=== PATIENT | male | born 2000 | race Caucasian/White ===

== ENCOUNTER 2022-10-11 23:40 | Emergency (ER) | payer BC ==
[~2022-10-11] VITALS: Ht 160 cm; Wt 63.5 kg
--- NOTE | 2022-10-11 23:50 | NUR ---
RICHARD C/O ALLERGIC REACTION X 30 MIN. PATIENT ATE SALAD WITH UNCONSCIOUSLY HAVING WALNUT. PATIENT IS AAOX4, ABLE TO MAKE NEEDS KNOWN, SOB, -CP, + BILATERAL LUNG WHEEZING, REDNESS AND RASHES ALL OVER THE BODY. PLACED COMFORTABLY IN BED. ATTACHED TO MONITOR. VITALS CHECKED.
[2022-10-11] MEDS ORDERED: EPINEPHRINE (1:1000) 1 MG/ML AMPUL ONE (23:53)
[2022-10-11] MEDS ORDERED: FAMOTIDINE/PF INJ 20 MG/2 ML VIAL IV ONE (23:54)
[2022-10-11] MEDS ORDERED: methylPREDNISolone SOD SUCC 125 MG/2ML VIAL ONE (23:54)
[2022-10-11] MEDS ORDERED: ALBUTEROL FS 2.5 MG/3 ML VIAL.NEB ONE (23:55)
[2022-10-11] MEDS ORDERED: IPRATROPIUM NEB FS 0.5 MG/2.5 ML AMPUL.NEB ONE (23:55)
--- NOTE | 2022-10-11 23:55 | NUR ---
IV MACRINA G20 INSERTED ON RIGHT AC. BLOOD DRAWN AND SENT TO LAB
[2022-10-12] MEDS ORDERED: methylPREDNISolone SOD SUCC 125 MG/2ML VIAL IV ONE
[2022-10-12] MEDS ORDERED: ALBUTEROL FS 2.5 MG/3 ML VIAL.NEB NEB ONE
[2022-10-12] MEDS ORDERED: FAMOTIDINE/PF INJ 20 MG/2 ML VIAL IV ONE
[2022-10-12] MEDS ORDERED: IV NS 0.9% 1,000 ML BAG IV ONE
[2022-10-12] MEDS ORDERED: IPRATROPIUM NEB FS 0.5 MG/2.5 ML AMPUL.NEB NEB ONE
[2022-10-12] MEDS ORDERED: EPINEPHRINE (1:1000) MDV 30 MG/30ML VIAL SUBCUT ONE
--- NOTE | 2022-10-12 00:41 | NUR ---
PATIENT'S LUNGS ARE CLEAR, PATIENT IS MORE CALMER AND RELAX.
--- NOTE | 2022-10-12 03:13 | NUR ---
PATIENT IS AWAKE, CALM AND FEEL MUCH BETTER. NEEDS ATTENDED
[2022-10-12] MEDS ORDERED: PRED20TA PO (03:29)
[2022-10-12] MEDS ORDERED: EPIN0.3P3 IM (03:29)
--- NOTE | 2022-10-12 03:29 | NUR ---
SEEN BY MD AT BEDSIDE
--- NOTE | 2022-10-12 03:35 | NUR ---
IV MACRINA REMOVED
--- NOTE | 2022-10-12 03:36 | NUR ---
Patient discharged to home in stable condition. Written and verbal after care instructions given. Patient verbalizes understanding of instruction.
[2022-10-12 04:38] VITALS: BP 120/66
== END 2022-10-12 04:38 | disposition home or self-care (01) ==
LOC: ER 23:42
DX: T78.05XA Anaphylactic reaction due to tree nuts and seeds, initial encounter (principal); R06.2 Wheezing; Z91.018 Allergy to other foods; Z79.899 Other long term (current) drug therapy; Z60.2 Problems related to living alone
CPT/HCPCS: 99284; 94640; 96374; 96361; 96375; 96372; J0171 ×2; J3490; J2930; J7030

== ENCOUNTER 2023-03-05 15:05 | Emergency (ER) | payer BC ==
[~2023-03-05] VITALS: Ht 157.5 cm; Wt 61.2 kg
[~2023-03-05 15:05] MED LIST: EPIN0.3P3 IM; PRED20TA PO
[2023-03-05] MEDS ORDERED: IBUP-1955 PO (17:06)
[2023-03-05 18:10] VITALS: BP 112/64; TEMP 98.3; O2SAT 100
== END 2023-03-05 18:11 | disposition home or self-care (01) ==
LOC: ER 15:20
DX: S06.0X0A Concussion without loss of consciousness, initial encounter (principal); R51.9 Headache, unspecified; M79.632 Pain in left forearm; Z79.899 Other long term (current) drug therapy; Z60.2 Problems related to living alone; Z88.1 Allergy status to other antibiotic agents; V89.2XXA Person injured in unspecified motor-vehicle accident, traffic, initial encounter; Y93.89 Activity, other specified; Y92.89 Other specified places as the place of occurrence of the external cause; Y99.8 Other external cause status
CPT/HCPCS: 70450-TC; 71045-TC; 72125-TC; 73030-TC; 73080-TC; 73110